=== PATIENT | male | born 1955 | race Caucasian/White ===

== ENCOUNTER → 2022-09-21 | Outpatient (CLI) | payer MEDICARE | END | disposition home or self-care (01) | LOC: LAB 11:15 → LAB SHORT 11:15 | DX: L08.9 Local infection of the skin and subcutaneous tissue, unspecified (principal) | CPT/HCPCS: 87070; 87205 ==

== ENCOUNTER → 2023-02-14 | Outpatient (CLI) | payer MEDICARE ==
[2023-02-14 19:18] LABS: BASOPHILS ABSOLUTE AUTO 0.04 K/mm3 (0.00-0.23); BASOPHILS PERCENT AUTO 1 % (0-2); EOSINOPHILS ABSOLUTE AUTO 0.14 K/mm3 (0.00-0.68); EOSINOPHILS PERCENT AUTO 4 % (0-6); Hematocrit 27.9 % (37.0-53.0); Hemoglobin 8.1 g/dL (13.5-17.5); IMMATURE GRAN PERCENT AUTO 0 % (0-1); LYMPHOCYTES ABSOLUTE AUTO 1.11 K/mm3 (0.84-5.20); LYMPHOCYTES PERCENT AUTO 28 % (21-46); MONOCYTES ABSOLUTE AUTO 0.45 K/mm3 (0.16-1.47); MONOCYTES PERCENT AUTO 12 % (4-13); Mean Corpuscular HGB 20.3 pg (26.0-34.0); Mean Corpuscular Volume 70 fL (80-100); NEUTROPHILS ABSOLUTE AUTO 2.17 K/mm3 (1.96-9.15); NEUTROPHILS PERCENT AUTO 56 % (41-73); Platelet Count 239 K/mm3 (150-400); RDW Coefficient Variation 16.3 % (11.7-14.2); RDW Standard Deviation 41.3 fL (35.1-46.3); Red Blood Cell Count 3.99 M/mm3 (4.30-5.90); White Blood Cell Count 3.91 K/mm3 (4.00-11.30)
[2023-02-14 19:35] LABS: Alanine Aminotransfer (ALT/SGP 22 U/L (12-78); Albumin, Blood 3.7 g/dL (3.4-5.0); Albumin/Globulin Ratio 0.8 (0.8-1.8); Alk Phos 81 U/L (50-136); Anion Gap 4 mmol/L (6-16); Aspartate Aminotrans (AST/SGOT 19 U/L (12-37); Bilirubin, Total 0.3 mg/dL (0.1-1.0); Blood Urea Nitrogen 29 mg/dL (8-24); Bun/Creatinine Ratio 24.2 (12.0-20.0); CHOL/HDL RATIO 5.6; CO2, Blood 29 mmol/L (21-32); Calcium, Blood 9.4 mg/dL (8.5-10.1); Chloride, Blood 105 mmol/L (98-108); Cholesterol 157 mg/dL (50-200); Globulin, Blood 4.8 g/dL (2.2-4.0); Glomerular Filtration Rate 67 (60-); Glucose, Blood 120 mg/dL (70-99); HDL Cholesterol 28 mg/dL (>39); LDL/HDL RATIO 3.1; Low Density Lipoprotein Chol 88 mg/dL (0-110); Potassium, Blood 4.6 mmol/L (3.5-5.5); Sodium, Blood 138 mmol/L (136-145); Total Protein, Blood 8.5 g/dL (6.4-8.2); Triglycerides 207 mg/dL (30-160); Very Low Density Lipoprot Chol 41 mg/dL (6-32)
== END | disposition home or self-care (01) ==
LOC: LAB SHORT 17:43 → LAB 17:43
PROVIDERS: Nurse Practitioner Family
DX: I10 Essential (primary) hypertension (principal)
CPT/HCPCS: 80053; 80061; 85025

== ENCOUNTER → 2023-06-25 | Outpatient (CLI) | payer MEDICARE ==
[2023-06-25 20:43] LABS: Albumin, Blood 3.9 g/dL (3.4-5.0); Albumin/Globulin Ratio 0.9 (0.8-1.8); Bilirubin, Total 0.4 mg/dL (0.1-1.0); Bun/Creatinine Ratio 24.1 (12.0-20.0); Calcium, Blood 9.3 mg/dL (8.5-10.1); Creatinine, Blood 1.16 mg/dL (0.60-1.20); Globulin, Blood 4.2 g/dL (2.2-4.0); Percent Saturation 16.6 % (20.0-50.0); Potassium, Blood 4.3 mmol/L (3.5-5.5); Total Protein, Blood 8.1 g/dL (6.4-8.2)
== END ==
LOC: LAB SHORT 17:08 → LAB 17:08
PROVIDERS: Nurse Practitioner Family
DX: I10 Essential (primary) hypertension (principal); D64.9 Anemia, unspecified
CPT/HCPCS: 80053; 82728; 83540; 83550

== ENCOUNTER → 2024-07-14 | Outpatient (CLI) | payer OTHER ==
[2024-07-14 12:34] LABS: BASOPHILS ABSOLUTE AUTO 0.04 K/mm3 (0.00-0.23); BASOPHILS PERCENT AUTO 1 % (0-2); EOSINOPHILS ABSOLUTE AUTO 0.21 K/mm3 (0.00-0.68); EOSINOPHILS PERCENT AUTO 4 % (0-6); Hematocrit 35.3 % (37.0-53.0); Hemoglobin 11.8 g/dL (13.5-17.5); IMMATURE GRAN ABSOLUTE AUTO 0.02 K/mm3 (0.00-0.10); IMMATURE GRAN PERCENT AUTO 0 % (0-1); LYMPHOCYTES PERCENT AUTO 22 % (21-46); MONOCYTES ABSOLUTE AUTO 0.38 K/mm3 (0.16-1.47); MONOCYTES PERCENT AUTO 7 % (4-13); Mean Corpuscular HGB Conc 33.4 g/dL (31.5-36.5); Mean Corpuscular Volume 90 fL (80-100); Mean Platelet Volume 10.3 fL (9.1-12.4); NEUTROPHILS ABSOLUTE AUTO 3.36 K/mm3 (1.96-9.15); NEUTROPHILS PERCENT AUTO 66 % (41-73); Platelet Count 187 K/mm3 (150-400); RDW Coefficient Variation 13.4 % (11.7-14.2); RDW Standard Deviation 44.1 fL (35.1-46.3); Red Blood Cell Count 3.93 M/mm3 (4.30-5.90); White Blood Cell Count 5.11 K/mm3 (4.00-11.30)
[2024-07-14 13:41] LABS: Anion Gap 10 mmol/L (3-11); Blood Urea Nitrogen 37 mg/dL (8-24); Bun/Creatinine Ratio 22.4 (12.0-20.0); CO2, Blood 25 mmol/L (21-32); Calcium, Blood 9.6 mg/dL (8.5-10.1); Chloride, Blood 107 mmol/L (98-108); Cholesterol 142 mg/dL (50-200); Creatinine, Blood 1.65 mg/dL (0.60-1.20); Glomerular Filtration Rate 45 (60-); Glucose, Blood 126 mg/dL (70-99); HDL Cholesterol 48 mg/dL (>39); LDL/HDL RATIO 1.5; Low Density Lipoprotein Chol 74 mg/dL (0-110); Potassium, Blood 4.9 mmol/L (3.5-5.5); Sodium, Blood 137 mmol/L (136-145); Triglycerides 102 mg/dL (30-160); Very Low Density Lipoprot Chol 20 mg/dL (6-32)
== END ==
LOC: LAB 11:03 → LAB SHORT 11:03
PROVIDERS: Nurse Practitioner Family
DX: I10 Essential (primary) hypertension (principal); E78.5 Hyperlipidemia, unspecified
CPT/HCPCS: 80048; 80061; 85025

== ENCOUNTER 2024-08-25 06:41 | Day surgery (SDC) | payer OTHER ==
[~2024-08-25] VITALS: Ht 182.9 cm; Wt 95.7 kg
[2024-08-25] VITALS (22 sets, daily range): BP systolic 88–146; BP diastolic 36–75
[~2024-08-25 06:41] MED LIST: AMLO5 PO; ATOR20 PO; Acetaminophen 500 MG Tab PO SCH; CeFAZolin Sodium 2,000 MG in NS 100 ML IV SCH; Chlorhexidine Mouth Care 15 ML UDC MT SCH; HYDCHL25 PO; LISI20 PO; Lactated Ringer's 1,000 ML IV SCH; OxyCODONE HCL 10 MG TABCR PO SCH; Ropivacaine 0.5% HCl/Pf 123.125 MG,EPINEPHrine HCL 0.25 MG,Ketorolac Tromethamine 15 MG... INFIL SCH; Tranexamic Acid 1,000 MG in NS 100 ML IV SCH
[2024-08-25] MEDS ORDERED: Midazolam HCl 1MG / ML 2ML Vial IV ONE (07:25)
[2024-08-25] MEDS ORDERED: propofoL 150 ML IV ONE (07:26)
[2024-08-25] MEDS ORDERED: Phenylephrine HCl 10mg/ml 1 ml Vial ONE (07:49)
[2024-08-25] MEDS ORDERED: DiphenhydrAMINE HCl 50 MG/ML 1ML Vial ONE (07:49)
[2024-08-25] MEDS ORDERED: Phenylephrine HCl 100 MCG/ML-NS 10MLSYR (1MG/10ML) ONE (07:49)
[2024-08-25] MEDS ORDERED: Ketorolac Tromethamine 30mg Vial ONE (08:57)
[2024-08-25] MEDS ORDERED: Lactated Ringer's 1,000 ML IV SCH (09:25)
[2024-08-25] MEDS ORDERED: FentaNYL Citrate 50 MCG/ML 2 ML Injection ONE (09:28)
[2024-08-25] MEDS ORDERED: Lactated Ringer's 1,000 ML IV ONE (09:28)
[2024-08-25] MEDS ORDERED: HYDROmorphone HCl/Pf 1MG SYR IV PRN (09:30)
[2024-08-25] MEDS ORDERED: Metoclopramide HCl 5MG / ML 2ML Vial IV PRN (09:30)
[2024-08-25] MEDS ORDERED: Ondansetron HCl 2 MG / ML 2ML Vial IV PRN (09:30)
[2024-08-25] MEDS ORDERED: DiphenhydrAMINE HCL 25 MG Cap PO PRN (09:30)
[2024-08-25] MEDS ORDERED: OxyCODONE HCL 5 MG TAB PO PRN ×2 (09:30)
[2024-08-25] MEDS ORDERED: FLU VACC TS2024-25(6MOS UP)/PF 45 MCG/0.5 ML SYRINGE IM SCH (09:30)
[2024-08-25] MEDS ORDERED: Magnesium Hydroxide Conc 10 ML UDC PO PRN (09:35)
[2024-08-25] MEDS ORDERED: Promethazine HCl 25 MG Tab PO PRN (09:35)
[2024-08-25] MEDS ORDERED: Prochlorperazine Edisylate 10 mg Vial IV PRN (09:35)
[2024-08-25] MEDS ORDERED: Bisacodyl 10 MG Supp PR PRN (09:35)
[2024-08-25] MEDS ORDERED: HYDROmorphone HCl/Pf 1MG SYR ONE (09:47)
--- NOTE | 2024-08-25 10:07 | NUR ---
POST OP ARRIVAL TO SURGICAL VIA HOSPITAL BED, ALERT, ORIENTED BUT "COOING" IN PAIN. REASSURED & MADE PLANS FOR PAIN MANAGEMENT. ASSESSMENT CHARTED. DENIES N/V; SNACKS & DRINKS GIVEN.
[2024-08-25] MEDS ORDERED: Ketorolac Tromethamine 15mg Vial IV SCH (12:00)
[2024-08-25] MEDS ORDERED: CeFAZolin Sodium 2,000 MG in NS 100 ML IV SCH (15:30)
--- NOTE | 2024-08-25 15:57 | NUR ---
Spiritual Care Visit | Pt. request Pt. is awake in bed and welcomes my visit. Facilitated a life review. In the process the Pt. verbalized that elias is not something that specifcally follows, but recognizes that there is some entity that is "looking out for us." Listen with interest and empathy and provide a calm safe place for the Pt. to tell his story. Considered matters of family and friends and a measure of rapport is established. Pt. verbalized gratitude for the spiritual care visit.
[2024-08-25] MEDS ORDERED: Acetaminophen 500 MG Tab PO SCH (16:00)
--- NOTE | 2024-08-25 16:00 | NUR ---
ABLE TO LIFT NON-SURGICAL LEG BUT NOT SURGICAL LEG.
--- NOTE | 2024-08-25 18:19 | NUR ---
SHIFT SUMMARY ALTHOUGH SPINAL DID NOT WEAR OFF FOR QUITE SOME TIME, HE WAS ABLE TO GET UP & AMBULATE A SHORT DISTANCE. PAIN MUCH BETTER THIS AFTERNOON. EATING & DRINKING, BUT UNABLE TO VOID MORE THAN DRIBBLES. BLADDER SCAN < 400mls. WILL ATTEMPT TO TRY TO VOID AFTER DINNER.
[2024-08-25] MEDS ORDERED: Docusate Sodium 100 MG Cap PO SCH (21:00)
[2024-08-26 00:08] VITALS: BP 101/53
[2024-08-26 05:07] VITALS: BP 116/62
--- NOTE | 2024-08-26 05:57 | NUR ---
SHIFT SUMMARY POD 1 R LAVERNE. NO ACUTE CHANGES OVERNIGHT. VSS. TOLERATING ORALS. VOIDING. AQUACEL C/D/I. PT REPORTS PAIN TOLERABLE, MEDICATED PER EMAR., POLAR PACK IN USE. ANTICIPATED TO WORK c PHYSCIAL THERAPY THEN DISCHARGE HOME LATER TODAY. PT DRESSED, RESTING IN CHAIR. CALL LIGHT IN REACH, WILL REPORT TO DAY RN.
[2024-08-26 06:54] LABS: BASOPHILS ABSOLUTE AUTO 0.01 K/mm3 (0.00-0.23); BASOPHILS PERCENT AUTO 0 % (0-2); EOSINOPHILS ABSOLUTE AUTO 0.15 K/mm3 (0.00-0.68); EOSINOPHILS PERCENT AUTO 3 % (0-6); Hematocrit 26.5 % (37.0-53.0); Hemoglobin 8.9 g/dL (13.5-17.5); IMMATURE GRAN ABSOLUTE AUTO 0.02 K/mm3 (0.00-0.10); IMMATURE GRAN PERCENT AUTO 0 % (0-1); LYMPHOCYTES ABSOLUTE AUTO 0.97 K/mm3 (0.84-5.20); LYMPHOCYTES PERCENT AUTO 17 % (21-46); MONOCYTES ABSOLUTE AUTO 0.49 K/mm3 (0.16-1.47); MONOCYTES PERCENT AUTO 9 % (4-13); Mean Corpuscular HGB Conc 33.6 g/dL (31.5-36.5); Mean Corpuscular Volume 92 fL (80-100); Mean Platelet Volume 10.5 fL (9.1-12.4); NEUTROPHILS ABSOLUTE AUTO 3.98 K/mm3 (1.96-9.15); NEUTROPHILS PERCENT AUTO 71 % (41-73); Platelet Count 152 K/mm3 (150-400); RDW Coefficient Variation 13.5 % (11.7-14.2); RDW Standard Deviation 45.9 fL (35.1-46.3); Red Blood Cell Count 2.87 M/mm3 (4.30-5.90); White Blood Cell Count 5.62 K/mm3 (4.00-11.30)
[2024-08-26 07:01] LABS: Bun/Creatinine Ratio 27.3 (12.0-20.0); Calcium, Blood 8.8 mg/dL (8.5-10.1); Creatinine, Blood 1.54 mg/dL (0.60-1.20); Potassium, Blood 4.4 mmol/L (3.5-5.5)
[2024-08-26 07:02] VITALS: BP 116/52
[2024-08-26] MEDS ORDERED: ELIQUIS2.5 MG PO (08:50)
[2024-08-26] MEDS ORDERED: HydroCHLOROthiazide 25 mg Tab PO SCH (09:00)
[2024-08-26] MEDS ORDERED: Lisinopril 20 MG Tab PO SCH (09:00)
[2024-08-26] MEDS ORDERED: AmLODIPine Besylate 5 MG Tab PO SCH (09:00)
[2024-08-26] MEDS ORDERED: Apixaban 5 MG Tab PO SCH (09:00)
--- NOTE | 2024-08-26 10:00 | NUR ---
DISCHARGE PT HAS WORKED w/ THERAPY. PAIN WELL CONTROLLED. EATING, DRINKING, & VOIDING WELL. DAKOTA & REGINA COREA SENT w/ PT. ESCORTED OUT VIA W/C.
== END 2024-08-26 09:57 | disposition home or self-care (01) ==
LOC: ORSCMMR 06:41 → ORD 07:30 → ORSCMMR 07:30 → SURS 09:58 → ORSCMMR 08-26 09:57
PROVIDERS: Orthopaedic Surgery
PROC: 0SR90JA Replacement of Right Hip Joint with Synthetic Substitute, Uncemented, Open Approach (ICD-10-PCS; principal; 2024-08-25 07:30)
DX: M16.11 Unilateral primary osteoarthritis, right hip (principal); I10 Essential (primary) hypertension; E78.00 Pure hypercholesterolemia, unspecified; Z79.899 Other long term (current) drug therapy
CPT/HCPCS: 36415; 72170; 80048; 85025; 97110; 97116; 97161; 97530; A9270; C1776; J0171; J0690; J0735; J1171; J1200; J1885; J2250; J2371; J2405; J2704; J2795; J3010; J7120

== ENCOUNTER 2024-10-13 06:34 | Day surgery (SDC) | payer OTHER ==
[~2024-10-13] VITALS: Ht 188 cm; Wt 100.0 kg
[2024-10-13] VITALS (16 sets, daily range): BP systolic 95–138; BP diastolic 53–65
[~2024-10-13 06:34] MED LIST changes: +ELIQUIS2.5 MG PO; -Tranexamic Acid 1,000 MG in NS 100 ML IV SCH; +Tranexamic Acid 100 ML IV SCH
[2024-10-13] MEDS ORDERED: CeFAZolin Sodium 2,000 MG VIAL ONE (06:44)
[2024-10-13] MEDS ORDERED: Midazolam HCl 1MG / ML 2ML Vial ONE (07:13)
[2024-10-13] MEDS ORDERED: Phenylephrine HCl 100 MCG/ML-NS 10MLSYR (1MG/10ML) ONE (07:13)
[2024-10-13] MEDS ORDERED: FentaNYL Citrate 50 MCG/ML 2 ML Injection ONE (07:13)
[2024-10-13] MEDS ORDERED: propofoL 20 ML IV ONE (07:13)
[2024-10-13] MEDS ORDERED: propofoL 100 ML IV ONE (07:17)
--- NOTE | 2024-10-13 07:34 | NUR ---
History, Chart, Medications and Allergies reviewed before start of procedure.Patient confirms NPO status and agrees with scheduled surgery. Pre-Op teaching done. Pt verbalizes understanding. EYE GLASSES TAKEN TO PACU
[2024-10-13] MEDS ORDERED: Dexamethasone Sod Phos 10 MG/ML 1ML VIAL ONE (07:59)
[2024-10-13] MEDS ORDERED: Scopolamine Hydrobromide Patch TOP SCH (08:15)
[2024-10-13] MEDS ORDERED: HYDROmorphone HCl/Pf 1MG SYR IV PRN ×3 (08:15→09:35)
[2024-10-13] MEDS ORDERED: Labetalol HCL 5 MG/ML 4ML Injection (Single Dose) IV PRN (08:15)
--- NOTE | 2024-10-13 08:16 | NUR ---
10/13/24 0816 Haydee Mejia SPINAL BLOCK COMPLETED BY UPON ENTRY TO OR.
[2024-10-13] MEDS ORDERED: FentaNYL Citrate 50 MCG/ML 2 ML Injection IV PRN (08:20)
[2024-10-13] MEDS ORDERED: Albuterol 2.5 MG/3 ML VIAL INH PRN (08:20)
[2024-10-13] MEDS ORDERED: ePHEDrine Sulfate 50 MG/ML 1ML Injection IV PRN (08:20)
[2024-10-13] MEDS ORDERED: Ondansetron HCl 2 MG / ML 2ML Vial ONE (08:59)
[2024-10-13] MEDS ORDERED: Ketorolac Tromethamine 30mg Vial ONE (08:59)
[2024-10-13] MEDS ORDERED: DiphenhydrAMINE HCL 25 MG Cap PO PRN (09:25)
[2024-10-13] MEDS ORDERED: Promethazine HCl 25 MG Tab PO PRN (09:25)
[2024-10-13] MEDS ORDERED: Bisacodyl 10 MG Supp PR PRN (09:25)
[2024-10-13] MEDS ORDERED: HYDROmorphone HCl/Pf 1MG SYR ONE ×2 (09:28→09:47)
[2024-10-13] MEDS ORDERED: Prochlorperazine Edisylate 10 mg Vial IV PRN (09:30)
[2024-10-13] MEDS ORDERED: OxyCODONE HCL 5 MG TAB PO PRN ×2 (09:30)
[2024-10-13] MEDS ORDERED: Magnesium Hydroxide Conc 10 ML UDC PO PRN (09:30)
[2024-10-13] MEDS ORDERED: Metoclopramide HCl 5MG / ML 2ML Vial IV PRN (09:30)
[2024-10-13] MEDS ORDERED: Ondansetron HCl 2 MG / ML 2ML Vial IV PRN (09:30)
[2024-10-13] MEDS ORDERED: FLU VACC TS2024-25(6MOS UP)/PF 45 MCG/0.5 ML SYRINGE IM PRN (09:35)
[2024-10-13] MEDS ORDERED: Lactated Ringer's 1,000 ML IV SCH (09:35)
[2024-10-13] MEDS ORDERED: XARELTO10 M4 PO (09:55)
--- NOTE | 2024-10-13 10:11 | NUR ---
ARRIVAL NOTE PT ARRIVED TO ROOM 215 FROM PACU AWAKE, ALERT AND RESPONDING APPROPRIATELY. VSS. 2LNC IN PLACE W/ O2 SATS >92%. PT REPORTING SOME PAIN, MEDICATION PER EMAR. DRESSING TO L HIP C/D/I, PT HAS PARTIAL SENSATION TO S1 AND CAN WIGGLE TOES. MARCIE CAMARENA, POLAR [place] IN PLACE. PT EDUCATED TEAM SUPERVISOR LIGHT.
[2024-10-13] MEDS ORDERED: Ketorolac Tromethamine 15mg Vial IV SCH (12:00)
[2024-10-13] MEDS ORDERED: CeFAZolin Sodium 2,000 MG in NS 100 ML IV SCH (16:00)
[2024-10-13] MEDS ORDERED: Acetaminophen 500 MG Tab PO SCH (16:00)
--- NOTE | 2024-10-13 16:56 | NUR ---
DISCHARGE NOTE PT IS A/OX4, SBA W/ FWW AND GB TO AMBULATE. PAIN IS TOLERABLE W/ PAIN MEDS PER EMAR, PT MEDICATED BEFORE DISCHARGE AND HAS POST OP PAIN MEDS FILLED AT HOME. PT IS VOIDING AND TOLERATING PO INTAKE. CAP REFILL TO L TOES 2 SECS, PT HAS FULL SENSATION AND CAN WIGGLE TOES. DRESSING C/D/I, PT SENT HOME W/ DRESSINGS AND DC INSTRUCTIONS REVIEWED AND GIVEN TO PT. VSS, PT HYPOTENSIVE AT BASELINE. CONFIRMED W/ CANDY SIDDIQUI SENT TO [facility], PT INFORMED. PT DC'D IN STABLE CONDITION VIA WC TO PRIVATE RIDE HOME W/ ALL BELONGINGS.
[2024-10-13] MEDS ORDERED: Docusate Sodium 100 MG Cap PO SCH (21:00)
[2024-10-14] MEDS ORDERED: HydroCHLOROthiazide 25 mg Tab PO SCH (09:00)
[2024-10-14] MEDS ORDERED: Rivaroxaban 10 MG Tab PO SCH (09:00)
[2024-10-14] MEDS ORDERED: Atorvastatin 10 MG Tab PO SCH (09:00)
[2024-10-14] MEDS ORDERED: Lisinopril 20 MG Tab PO SCH (09:00)
== END 2024-10-13 16:54 | disposition home or self-care (01) ==
LOC: ORSCMMR 06:34 → ORD 07:30 → ORSCMMR 07:30 → SURS 09:48 → ORSCMMR 16:54
PROVIDERS: Orthopaedic Surgery
PROC: 0SRB0JA Replacement of Left Hip Joint with Synthetic Substitute, Uncemented, Open Approach (ICD-10-PCS; principal; 2024-10-13 07:30)
DX: M16.12 Unilateral primary osteoarthritis, left hip (principal); I10 Essential (primary) hypertension; J44.9 Chronic obstructive pulmonary disease, unspecified; Z79.899 Other long term (current) drug therapy; Z86.718 Personal history of other venous thrombosis and embolism; Z79.01 Long term (current) use of anticoagulants; E78.00 Pure hypercholesterolemia, unspecified; Z96.641 Presence of right artificial hip joint
CPT/HCPCS: 72170; 97116; 97161; 97530; A9270; C1776; J0171; J0690; J0735; J1100; J1171; J1885; J2250; J2371; J2405; J2704; J2795; J3010; J7120